=== PATIENT | female | born 1995 | race African-American/Black ===

== ENCOUNTER 2017-08-13 16:10 | Emergency (ER) | payer SELFPAY ==
[~2017-08-13] VITALS: Ht 170.2 cm; Wt 60.2 kg
[~2017-08-13 16:10] MED LIST: CIPROFLOXACN500 MG PO; PRENATAL1 TA1 PO
[2017-08-13 17:24] LABS: INFLUENZA A NONE DETECTED (NONE DETECT); INFLUENZA B NONE DETECTED (NONE DETECT)
[2017-08-13] MEDS ORDERED: AMOXICILLIN500 MG PO (17:29)
[2017-08-13 17:35] VITALS: BP 121/69
== END 2017-08-13 17:35 | disposition home or self-care (01) | DRG 153 ==
LOC: ED 16:10
PROVIDERS: Emergency Medicine
DX: J02.9 Acute pharyngitis, unspecified (principal); M79.1 Myalgia; R05 Cough

== ENCOUNTER 2017-10-16 11:58 | Emergency (ER) | payer SELFPAY ==
[~2017-10-16] VITALS: Ht 170.2 cm; Wt 70.0 kg
[~2017-10-16 11:58] MED LIST changes: +AMOXICILLIN500 MG PO
[2017-10-16] MEDS ORDERED: ALL DAY10 MG PO (12:25)
[2017-10-16] MEDS ORDERED: DEBROX6.5 % OT (12:25)
[2017-10-16] MEDS ORDERED: ZPAK PO (12:25)
[2017-10-16 12:34] VITALS: BP 118/89
== END 2017-10-16 12:34 | disposition home or self-care (01) | DRG 153 ==
LOC: ED 11:58
DX: J06.9 Acute upper respiratory infection, unspecified (principal); H92.02 Otalgia, left ear; R05 Cough; J34.89 Other specified disorders of nose and nasal sinuses

== ENCOUNTER 2017-12-30 14:33 | Emergency (ER) | payer MEDICAID ==
[~2017-12-30] VITALS: Ht 170.2 cm; Wt 62.0 kg
[~2017-12-30 14:33] MED LIST changes: +ALL DAY10 MG PO; +DEBROX6.5 % OT; +ZPAK PO
[2017-12-30 15:25] VITALS: BP 104/65
== END 2017-12-30 15:25 | disposition home or self-care (01) ==
LOC: ED 14:33
DX: H61.23 Impacted cerumen, bilateral (principal)